=== PATIENT | female | born 2000 | race Two or more races ===

== ENCOUNTER 2024-07-06 23:44 | Emergency (ER) | payer OTHER ==
[~2024-07-06] VITALS: Ht 157.5 cm; Wt 53.5 kg
[2024-07-07] MEDS ORDERED: ORPHENADRINE CITRATE 30 MG/ML AMPUL ONE (02:30)
== END 2024-07-07 | disposition home or self-care (01) ==
LOC: ER 23:44
DX: M43.6 Torticollis (principal); S49.82XA Other specified injuries of left shoulder and upper arm, initial encounter; V49.88XA Car occupant (driver) (passenger) injured in other specified transport accidents, initial encounter; Y93.89 Activity, other specified; Y92.89 Other specified places as the place of occurrence of the external cause; Y99.8 Other external cause status; Z88.6 Allergy status to analgesic agent; M25.512 Pain in left shoulder

== ENCOUNTER 2024-10-10 23:24 | Emergency (ER) | payer OTHER ==
[~2024-10-10] VITALS: Ht 154.9 cm; Wt 45.8 kg
== END 2024-10-11 | disposition left against medical advice (07) ==
LOC: ER 23:25
DX: Z53.21 Procedure and treatment not carried out due to patient leaving prior to being seen by health care provider (principal)

== ENCOUNTER 2025-03-01 11:00 | Emergency (ER) | payer OTHER ==
[~2025-03-01] VITALS: Ht 154.9 cm; Wt 45.4 kg
[2025-03-01] MEDS ORDERED: FAMOtidine 10 MG/ML (4ML VIAL) IV PUSH ONE (11:15)
[2025-03-01] MEDS ORDERED: ELVITEG/COB/EMTRI/TENOFO DISOP 1 UDTAB TABLET PO ONE (11:15)
== END 2025-03-01 11:47 | disposition home or self-care (01) ==
LOC: ER 11:00
DX: S61.248A Puncture wound with foreign body of other finger without damage to nail, initial encounter (principal); Y65.8 Other specified misadventures during surgical and medical care; Y93.F9 Activity, other caregiving; Y92.230 Patient room in hospital as the place of occurrence of the external cause; Z88.0 Allergy status to penicillin